=== PATIENT | male | born 1950 | race Caucasian/White ===

== ENCOUNTER 2021-07-28 23:06 | Inpatient (IN) | payer MEDICARE, SELFPAY ==
--- NOTE | ~2021-07-28 | XR_ITS ---
EXAMINATION: XR CHEST CLINICAL INFORMATION: Shortness of breath COMPARISON: None TECHNIQUE: Frontal view of the chest was obtained. FINDINGS: Cardiac leads overlie the chest. The lungs are well expanded. Diffuse patchy bilateral airspace opacities with mild interstitial prominence. No pleural effusion or pneumothorax. The cardiomediastinal silhouette is within normal limits. Defibrillator pads overlie the chest. XR/XR chest 1V IMPRESSION: Diffuse bilateral opacities with mild interstitial prominence as well. This appearance could be associated with interstitial and alveolar edema versus atypical infectious process.
[2021-07-28 23:17] VITALS: PULSE 120
[2021-07-28] MEDS: Furosemide 100 MG/10 ML VIAL 60 MG IVPUSH (23:18)
--- NOTE | 2021-07-28 23:18 | ECG_ITS ---
Test Reason : REPEAT Blood Pressure : / mmHG Vent. Rate : 096 BPM Atrial Rate : 096 BPM P-R Int : 220 ms QRS Dur : 144 ms QT Int : 408 ms P-R-T Axes : 065 -53 075 degrees QTc Int : 515 ms Poor data quality Sinus rhythm with 1st degree A-V block Left anterior fascicular block Right bundle branch block Inferior infarct (cited on or before 17-JUN-2007) Abnormal ECG When compared with ECG of 17-JUN-2007 11:49, OH interval has increased Right bundle branch block is now Present Referred By: Karen Stovall Electronically Signed By:ANA MARIA ROBLES MD
[2021-07-28 23:23] LABS: MANUAL DIFF FLAG NO
[2021-07-28 23:24] LABS: VBG Base Excess -2.2 mmol/L; VBG HCO3 26 mmol/L (22-26); VBG pCO2 63 mmHg; VBG pH 7.22 (7.32-7.43); VBG pO2 30 mmHg
--- NOTE | 2021-07-28 23:24 | ED_ITS ---
HPI - SOB/Dyspnea General Chief Complaint: Dyspnea Stated Complaint: Heart attack Time Seen by Provider: 07/28/21 23:13 Source: patient Mode of arrival: other History of Present Illness HPI Narrative: 71-year-old male who was brought in from the parking lot, employee here at the hospital, when he was noted to be sitting in his car with apparent gasping of breath and poor color. Initially, unable to get remaining history but later patient endorses that he does have a history of heart failure and was sick last week and has had progressive shortness of breath over the past week despite taking his medications as prescribed. He denies any chest pain, abdominal pain, but states he feels like his lungs are full of mucus. Related Data Home Medications Medication Instructions Recorded Confirmed amiodarone 200 mg tablet 1 tab PO DAILY 07/29/21 07/29/21 apixaban 5 mg tablet (Eliquis) 1 tab PO BID 07/29/21 07/29/21 atorvastatin 40 mg tablet 1 tab PO BEDTIME 07/29/21 07/29/21 carvedilol 25 mg tablet 1 tab PO BID 07/29/21 07/29/21 digoxin 125 mcg (0.125 mg) tablet 0.125 mcg PO DAILY 07/29/21 07/29/21 furosemide 20 mg tablet 1 tab PO BID 07/29/21 07/29/21 sacubitril 24 mg-valsartan 26 mg 1 tab PO BID 07/29/21 07/29/21 tablet (Entresto) sacubitril 49 mg-valsartan 51 mg 1 tab PO BID 07/29/21 07/29/21 tablet (Entresto) Allergies Allergy/AdvReac Type Severity Reaction Status Date / Time Unable to Assess Allergy Verified 07/28/21 23:14 Review of Systems Review of Systems: Pertinent positives and negatives as stated in HPI 10 point review of systems limited. [facility] Past Medical History Source: nursing notes reviewed Medical History (Updated 07/29/21 @ 00:58 by Karen Stovall PA-C) Congestive heart failure (CHF) Hypertension Social History Social History Household Members: None Housing: House Do you presently have visiting nurse or other home services: No Alcohol intake: never Patient Tobacco Use Status: Former Tobacco user Quit Date: 1990 Tobacco use type: Cigarette Cigarette Packs Per Day: 1.5 Cigarettes Per Day: 30.0 Years Smoked: 15 Smoked in Last 30 Days: No Patient Interested in Nicotine Replacement: No Patient Given Instructions on How to Stop Smoking: No Second Hand Smoke Exposure: No Use of substances other than those prescribed or required for medical reasons: No Substance Use Type: Marijuana and Caffiene Substance Use Type Other:: very occasional marijuana, Substance Use Frequency: Occasionally Have you been hit, kicked, punched, or otherwise hurt by someone within the past year? If so, by whom?: No Do you feel safe in your current relationship?: No Current Relationship Is there a partner from a previous relationship who is making you feel unsafe now?: No Are you made to feel afraid or neglected: No Spiritual Healthcare Practices: very spiritual person, believes in God, believes personal spiritual variation [employer] Healthcare Practices: n/a Cultural Healthcare Practices: feels reticent to take aggressive healthcare measures. Expresses not being interested in being dependent on a machine, i.e. was advised to get an implantable defibrillator by [facility] and did not want it. ok with defibrillation in general with paddles, but not with implantable device. Advance Directives: Yes (Christiano ndiaye, will bring in form) Advance Directives Information Provided: Yes Advance Directives on File: No (at another institution, but will bring in or sign new one) Advance Directives Date on File: 07/29/21 Do you have thoughts of harming others: None Do you have a plan to hurt others: No Plan Recently lost weight without trying: No Poor oral hygiene: No Physical Exam Vital Signs: Vital Signs: Last Vital Signs Temp 98.8 F 07/29/21 05:47 Pulse 66 07/29/21 05:47 Resp 16 07/29/21 05:47 BP 109/53 L 07/29/21 05:47 Pulse Ox 99 07/29/21 05:47 Body Mass Index 28.0 VITAL SIGNS: Reviewed. GENERAL: Well developed, well nourished, patient in extremis HEAD: Normocephalic/atraumatic EYES: PERRLA, EOMI OROPHARYNX: no oral lesions noted, posterior pharynx clear, dry mucosa NECK: Supple, no adenopathy LUNGS: Rales noted in apices with scattered rhonchi but no wheeze, gasping for breath, significant work of breathing, tachypnea. SpO2<88> on 100% non- rebreather CARDIOVASCULAR: Regular, tachycardic rate without noted murmurs, no JVD and bilateral lower 1+ pitting edema ABDOMEN: Soft, non-tender, non-distended with bowel sounds. SKIN: Inspection of the skin reveals no rashes, but significant pallor and extremities cool to touch, no cyanosis noted NEUROLOGIC: Alert and oriented x 4. Strength and sensation to light touch were grossly intact x 4. Course Course Course Narrative: 2335: 71-year-old male arrives in acute respiratory failure that responded to 100% non-rebreather and based on clinical exam as well as quick bedside ultrasound significant for pulmonary edema. EKG without ST elevations noted and patient denies chest pain. After being placed on oxygen heart rate began to improve and patient was placed on BiPAP with continued improvement in heart rate as well as oxygenation. Patient also received 60 mg of Lasix and 0.5 in of nitropaste. Noted lactic acidosis as well as leukocytosis and heart rate felt to be secondary to acute respiratory failure and less likely to be associated with infectious source. However, patient was provided with empiric antibiotics. Sepsis fluids were withheld for obvious acute respiratory failure with pulmonary edema. Patient continued to improve, was noted to have an elevated temperature was treated with Tylenol and on review of x-ray there is further corroboration for CHF with pulmonary edema. This case was discussed with the stitch wheeler who accepts admission and patient now with decreased work of breathing, improved color, remains hemodynamically stable and VBG improve from pH of 7.2-7.4. MDM - SOB/Dyspnea Lab Data Result diagrams: 07/29/21 04:10 07/29/21 04:10 Labs: Lab Results 07/28/21 07/28/21 07/28/21 Range/Units 23:12 23:12 23:12 WBC 12.9 H (4.8-10.8) X10*3/uL RBC 3.82 L (4.60-5.80) X10*6/uL Hgb 12.2 L (14.0-18.0) g/dl Hct 38.9 L (42.0-52.0) % MCV 101.8 H (80.0-98.0) fL MCH 31.9 (27.0-33.0) pg MCHC 31.4 (31.0-36.0) g/dl RDW 12.5 (11.0-16.0) % Plt Count 550 H (160-400) X10*3/uL MPV 9.9 (9.4-12.4) fL Immature Gran % (Auto) 0.4 (0.0-0.4) % Neut % (Auto) 69.1 (45-73) % Lymph % (Auto) 21.1 (20-40) % [place] % (Auto) 7.0 (2-11) % Eos % (Auto) 2.0 (0-4) % Baso % (Auto) 0.4 (0-2) % Lymph # (Auto) 2.7 (1.2-4.9) X10*3/uL [place] # (Auto) 0.9 (0.1-1.2) X10*3/uL Eos # (Auto) 0.3 (0.0-0.4) X10*3/uL Baso # (Auto) 0.1 (0.0-0.2) X10*3/uL Abs Immat Gran (auto) 0.05 H (0.00-0.03) X10*3/uL Absolute Neuts (auto) 8.9 H (2.0-8.3) x10*3/uL Absolute Nucleated RBC 0.000 (0.0-0.012) X10*3/uL Nucleated RBC % (auto) 0.0 (0.0-0.2) /100WBC PT 13.2 H (9.9-13.0) SEC INR 1.2 H (0.9-1.1) APTT 31.4 (24.1-38.0) SEC D-Dimer < 200 NG/ML VBG pH (7.32-7.43) VBG pCO2 mmHg VBG pO2 mmHg VBG HCO3 (22-26) mmol/L VBG O2 Saturation % VBG Base Excess mmol/L Sodium 141 (135-145) mmol/L Potassium 4.5 (3.3-5.1) mmol/L Chloride 106 (96-108) mmol/L Carbon Dioxide 24 (22-29) mmol/L Anion Gap 16 (12-20) BUN 12 (9-16) mg/dL Creatinine 1.22 (0.5-1.4) mg/dL Estim Creat Clear Calc 65.0 Estimated GFR 59 Random Glucose 244 H (60-115) mg/dL Lactic Acid (0.5-2.0) mmol/L Calcium 9.1 (8.4-10.2) mg/dL Magnesium 2.5 (1.6-2.6) mg/dL Total Bilirubin 0.4 (0.0-1.0) mg/dL AST 20 (5-37) U/L ALT 18 (0-40) U/L Alkaline Phosphatase 72 (39-117) U/L Troponin I High Sens (<3.5-35.0) ng/L B-Natriuretic Peptide (<100) pg/mL Total Protein 7.1 (6.5-8.0) g/dL Albumin 4.3 (3.5-5.0) g/dL COVID-19 (ELDER) (Negative) COVID-19 Clin Com 07/28/21 07/28/21 07/28/21 Range/Units 23:12 23:12 23:12 WBC (4.8-10.8) X10*3/uL RBC (4.60-5.80) X10*6/uL Hgb (14.0-18.0) g/dl Hct (42.0-52.0) % MCV (80.0-98.0) fL MCH (27.0-33.0) pg MCHC (31.0-36.0) g/dl RDW (11.0-16.0) % Plt Count (160-400) X10*3/uL MPV (9.4-12.4) fL Immature Gran % (Auto) (0.0-0.4) % Neut % (Auto) (45-73) % Lymph % (Auto) (20-40) % [place] % (Auto) (2-11) % Eos % (Auto) (0-4) % Baso % (Auto) (0-2) % Lymph # (Auto) (1.2-4.9) X10*3/uL [place] # (Auto) (0.1-1.2) X10*3/uL Eos # (Auto) (0.0-0.4) X10*3/uL Baso # (Auto) (0.0-0.2) X10*3/uL Abs Immat Gran (auto) (0.00-0.03) X10*3/uL Absolute Neuts (auto) (2.0-8.3) x10*3/uL Absolute Nucleated RBC (0.0-0.012) X10*3/uL Nucleated RBC % (auto) (0.0-0.2) /100WBC PT (9.9-13.0) SEC INR (0.9-1.1) APTT (24.1-38.0) SEC D-Dimer NG/ML VBG pH (7.32-7.43) VBG pCO2 mmHg VBG pO2 mmHg VBG HCO3 (22-26) mmol/L VBG O2 Saturation % VBG Base Excess mmol/L Sodium (135-145) mmol/L Potassium (3.3-5.1) mmol/L Chloride (96-108) mmol/L Carbon Dioxide (22-29) mmol/L Anion Gap (12-20) BUN (9-16) mg/dL Creatinine (0.5-1.4) mg/dL Estim Creat Clear Calc Estimated GFR Random Glucose (60-115) mg/dL Lactic Acid 3.6 H* (0.5-2.0) mmol/L Calcium (8.4-10.2) mg/dL Magnesium (1.6-2.6) mg/dL Total Bilirubin (0.0-1.0) mg/dL AST (5-37) U/L ALT (0-40) U/L Alkaline Phosphatase (39-117) U/L Troponin I High Sens 13.9 (<3.5-35.0) ng/L B-Natriuretic Peptide 1796 H (<100) pg/mL Total Protein (6.5-8.0) g/dL Albumin (3.5-5.0) g/dL COVID-19 (ELDER) Negative (Negative) COVID-19 Clin Com See Note 07/28/21 07/28/21 Range/Units 23:12 23:18 WBC (4.8-10.8) X10*3/uL RBC (4.60-5.80) X10*6/uL Hgb (14.0-18.0) g/dl Hct (42.0-52.0) % MCV (80.0-98.0) fL MCH (27.0-33.0) pg MCHC (31.0-36.0) g/dl RDW (11.0-16.0) % Plt Count (160-400) X10*3/uL MPV (9.4-12.4) fL Immature Gran % (Auto) (0.0-0.4) % Neut % (Auto) (45-73) % Lymph % (Auto) (20-40) % [place] % (Auto) (2-11) % Eos % (Auto) (0-4) % Baso % (Auto) (0-2) % Lymph # (Auto) (1.2-4.9) X10*3/uL [place] # (Auto) (0.1-1.2) X10*3/uL Eos # (Auto) (0.0-0.4) X10*3/uL Baso # (Auto) (0.0-0.2) X10*3/uL Abs Immat Gran (auto) (0.00-0.03) X10*3/uL Absolute Neuts (auto) (2.0-8.3) x10*3/uL Absolute Nucleated RBC (0.0-0.012) X10*3/uL Nucleated RBC % (auto) (0.0-0.2) /100WBC PT (9.9-13.0) SEC INR (0.9-1.1) APTT (24.1-38.0) SEC D-Dimer Cancelled NG/ML VBG pH 7.22 L (7.32-7.43) VBG pCO2 63 mmHg VBG pO2 30 mmHg VBG HCO3 26 (22-26) mmol/L VBG O2 Saturation 36.0 % VBG Base Excess -2.2 mmol/L Sodium (135-145) mmol/L Potassium (3.3-5.1) mmol/L Chloride (96-108) mmol/L Carbon Dioxide (22-29) mmol/L Anion Gap (12-20) BUN (9-16) mg/dL Creatinine (0.5-1.4) mg/dL Estim Creat Clear Calc Estimated GFR Random Glucose (60-115) mg/dL Lactic Acid (0.5-2.0) mmol/L Calcium (8.4-10.2) mg/dL Magnesium (1.6-2.6) mg/dL Total Bilirubin (0.0-1.0) mg/dL AST (5-37) U/L ALT (0-40) U/L Alkaline Phosphatase (39-117) U/L Troponin I High Sens (<3.5-35.0) ng/L B-Natriuretic Peptide (<100) pg/mL Total Protein (6.5-8.0) g/dL Albumin (3.5-5.0) g/dL COVID-19 (ELDER) (Negative) COVID-19 Clin Com Critical Care Time Critical Care Time Critical Care Time: Yes Total Critical Care Time: 30 Attestation: I personally attest to this time spent taking care of the patient. Discharge Plan Discharge Clinical Impression: Acute respiratory failure, Acute pulmonary edema with congestive heart failure Patient Disposition: Admitted As Inpatient Interventions: Admission Worksheet (ED) Last Done: 07/29/21 02:16 Discharge Date/Time: 07/29/21 02:17
--- NOTE | 2021-07-28 23:24 | PC.NURSE ---
THIS RN ACCOMPANIED SECURITY TO OLD ED PARKING LOT D/T MEDICAL EMERGENCY BEING CALLED OVER THE RADIO BY SWITCHBOARD. PT FOUND TO BE IN VEHICLE TANNING [employer]ON ATTENDANT SEAT OF OUTSIDE OF OLD ED ENTRANCE, PT WAS SLOW TO RESPOND BUT ABLE TO ANSWER QUESTIONS, PT PALE & DIAPHORETIC W/ OBVIOUS DIFF BREATHING. 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 PT PLACED ON ED STRETCHER BY SECURITY VIA THIS RN DIRECTION AND BROUGHT TO MAIN ED RM 5. DR. STEIN IN ROOM ON ARRIVAL TO ED, HOMA RT PRESENT, BRANDON RN PRESENT POC 197 HR 100 O2 SAT 84% ON RA R30 PT PLACED ON NRB O2 SAT TO 93% W/ RR 27-33 IV #18 R AC & #18 R WRIST 2310 EKG DONE 2311 BP 168/93 2314 PT PLACED ON BIPAP 2318 60MG LASIX IN 2319 SILVA CATH PLACED WITH CLEAR YELLOW URINE RETURN 2319 PT PLACED ON BIPAP 2320 REPEAT EKG DONE 232 156/80 HR 95 97% ON BIPAP RR 32
[2021-07-28 23:25] LABS: Venous Blood Gas Refer to POC result
[2021-07-28 23:26] VITALS: BP 159/79; PULSE 99; RESP 36; TEMP 38.5; O2SAT 100; BMI 28.0
[2021-07-28 23:28] LABS: Basophils Absolute Auto 0.1 X10*3/uL (0.0-0.2); Basophils Percent Auto 0.4 % (0-2); Eosinophils Absolute Auto 0.3 X10*3/uL (0.0-0.4); Hematocrit 38.9 % (42.0-52.0); Hemoglobin 12.2 g/dl (14.0-18.0); Imm Gran Abs Auto 0.05 X10*3/uL (0.00-0.03); Imm Gran Pct Auto 0.4 % (0.0-0.4); Lymphocytes Absolute Auto 2.7 X10*3/uL (1.2-4.9); Lymphocytes Percent Auto 21.1 % (20-40); Mean Corpuscular HGB Conc 31.4 g/dl (31.0-36.0); Mean Corpuscular Hemoglobin 31.9 pg (27.0-33.0); Mean Corpuscular Volume 101.8 fL (80.0-98.0); Mean Platelet Volume 9.9 fL (9.4-12.4); Monocytes Absolute Auto 0.9 X10*3/uL (0.1-1.2); Neutrophils Absolute Auto 8.9 x10*3/uL (2.0-8.3); Neutrophils Percent Auto 69.1 % (45-73); Platelet Count 550 X10*3/uL (160-400); Red Blood Count 3.82 X10*6/uL (4.60-5.80); Red Cell Distribution Width 12.5 % (11.0-16.0); White Blood Count 12.9 X10*3/uL (4.8-10.8)
[2021-07-28 23:35] LABS: INTERNATIONAL NORM RATIO 1.2 (0.9-1.1); Prothrombin Time 13.2 SEC (9.9-13.0)
[2021-07-28 23:38] LABS: Partial Thromboplastin Time 31.4 SEC (24.1-38.0)
[2021-07-28 23:41] LABS: D Dimer < 200 NG/ML
[2021-07-28 23:43] LABS: Alanine Aminotransferase 18 U/L (0-40); Albumin Level 4.3 g/dL (3.5-5.0); Alkaline Phosphatase 72 U/L (39-117); Anion Gap 16 (12-20); Aspartate Amino Transferase 20 U/L (5-37); Bilirubin Total 0.4 mg/dL (0.0-1.0); Blood Urea Nitrogen 12 mg/dL (9-16); Calcium 9.1 mg/dL (8.4-10.2); Carbon Dioxide 24 mmol/L (22-29); Chloride 106 mmol/L (96-108); Estimated Glomerular Filt Rate 59; Glucose Random 244 mg/dL (60-115); Magnesium 2.5 mg/dL (1.6-2.6); Potassium 4.5 mmol/L (3.3-5.1); Sodium 141 mmol/L (135-145); Total Protein 7.1 g/dL (6.5-8.0)
[2021-07-28 23:44] LABS: COVID-19 Test Negative (Negative); IDNOW Serial# 9DD0AD1C
[2021-07-28] MEDS: Acetaminophen Supp 650 MG SUPP.RECT PR (23:44)
[2021-07-28 23:46] VITALS: BP 162/84; PULSE 106
[2021-07-28] MEDS: Nitroglycerin 2 % Oint 1 GM Packet 0.5 INCH TRANSDERMA (23:46)
[2021-07-28 23:47] LABS: B Type Natriuretic Peptide 1796 pg/mL (<100); Troponin-I High Sensitivity 13.9 ng/L (<3.5-35.0)
[2021-07-28 23:48] LABS: Lactic Acid 3.6 mmol/L (0.5-2.0)
[2021-07-28 23:49] VITALS: O2SAT 98
[2021-07-29] VITALS (27 sets, daily range): BP systolic 94–137; BP diastolic 42–80; PULSE 24–97; RESP 13–26; TEMP 36.8–38.8; O2SAT 91–99; BMI 28.9
--- NOTE | 2021-07-29 | ECG_ITS ---
Test Reason : baseline Blood Pressure : / mmHG Vent. Rate : 070 BPM Atrial Rate : 070 BPM P-R Int : 172 ms QRS Dur : 144 ms QT Int : 456 ms P-R-T Axes : -13 -32 139 degrees QTc Int : 492 ms Normal sinus rhythm Left axis deviation Non-specific intra-ventricular conduction block Minimal voltage criteria for LVH, may be normal variant ( Brayden product ) ST depression in Lateral leads T wave abnormality, consider lateral ischemia Abnormal ECG ST more depressed Lateral leads Referred By: Karen Stovall Electronically Signed By:ANA MARIA ROBLES MD
[2021-07-29] MEDS: Piperacillin Sodium/Tazobactam 3.375 GM in 0.9 % Sodium Chloride 50 ML IV (00:20)
--- NOTE | 2021-07-29 00:24 | PM.CCHP ---
History of Present Illness Date of Service: 07/29/21 Attending physician on admission: Josiah Zimmerman Chief Complaint: Dyspnea Patient is a 71-year-old male with a past medical history of hypertension and congestive heart failure on 20 of Lasix daily who was found in the [facility] parking lot in respiratory distress. He states he had just arrived to work and security found him pale and and respiratory distress. The patient states he has had increasing shortness of breath, cough and fevers for the past week. He states no one else in his home is sick but he does live in a very old home with mold in the basement. He states he has had similar illnesse a few times in the past and it seems the mole and other irritants in his basement trigger these infections. He does not recall having to be diuresed, put on a Bipap machine or feeling like this in the past. He states he goes to [facility] ardiology for his care. In the ED, the patient was found to be hypertensive 162/84, tachycardic in the 120's, febrile at 102F, tachypneic with a RR of 24, hypoxic at 88% on RA. Labs revealed a mildly elevated white blood cell count 12.9, troponin was negative, chemistry panel was unremarkable, both renal and liver indices were within normal limits, d dimer <200, BNP 1796, lactic acid is 3.6 but we will not be giving IVF as pt is in flash pulmonary edema. UA negative for infection, COVID negative. EKG showed ST changes. Patient was placed on BiPAP, given 60 IV Lasix and zosyn. Will get procalcitonin, respiratory panel and repeat VBG as the pt has been on Bipap for 30-45 mins. During my bedside exam, he had already diuresed approximately 450 mLs and stated he was breathing a little easier than upon arrival but not back to his baseline yet. He denies any chest pain or abdominal pain. Dr. Zimmerman examined the patient, he agrees with assessment and plan, patient will be admitted to the ICU for further monitoring and treatment of his flash pulmonary edema. Records from [facility] show patient had an office visit with Dr Wang Low on 07/23/21, records from that day show the pt has a past medical history of DM2, afib on 5mg eliquis BID, PVD (R iliac disease), hyperlipidemia, hypertension, ischemic cardiomyopathy, obesity, HFrEF, NYHA subjective class 2, decompensated, stage C. I obtained the cardiology office note from [facility] cardiology dated 07/23/21 which states the patient has CAD (RCA DIRECTOR OF SALES, LCx DIRECTOR OF SALES, moderate LAD), severe BiV dysfunction with LVEF 10% with signs of RCA/LCX infarct on C-MRI, LVEF 10% with RH dysfunction an LVEDD 7.5 cm by echo at [facility] associated with AFib with RVR status post CV (recurrence after CV/dig/amiodarone infusion). On that day, patient was told to increase Lasix to 20 mg b.i.d. (which he did not do bc he was concerned about low blood pressures), continue Coreg at 25 mg b.i.d. and increase Entresto to 49/51mg BID. Of note, he takes 200 mg amiodarone daily, 5 mg apixaban BID, 81 mg aspirin daily, 40 mg atorvastatin daily, 0.125 mg digoxin every 48 hours. Called [facility], patient is part of the heart failure service. supervisor order takers said he could not make the decision to transfer the patient and their hospital is very full so the transfer line recommended calling in the morning and speaking with the heart failure service to see if they would like the patient tomorrow. Review of Systems Review of Systems: Yes all other systems are reviewed and are negative PENDING SALE TO [facility] Past Medical History Medical History Congestive heart failure (CHF) Hypertension Social History Social History Household Members: None Housing: House Do you presently have visiting nurse or other home services: No Alcohol intake: never Patient Tobacco Use Status: Former Tobacco user Quit Date: 1990 Tobacco use type: Cigarette Cigarette Packs Per Day: 1.5 Cigarettes Per Day: 30.0 Years Smoked: 15 Smoked in Last 30 Days: No Patient Interested in Nicotine Replacement: No Patient Given Instructions on How to Stop Smoking: No Second Hand Smoke Exposure: No Use of substances other than those prescribed or required for medical reasons: No Substance Use Type: Marijuana and Caffiene Substance Use Type Other:: very occasional marijuana, Substance Use Frequency: Occasionally Have you been hit, kicked, punched, or otherwise hurt by someone within the past year? If so, by whom?: No Do you feel safe in your current relationship?: No Current Relationship Is there a partner from a previous relationship who is making you feel unsafe now?: No Are you made to feel afraid or neglected: No Spiritual Healthcare Practices: very spiritual person, believes in God, believes personal spiritual variation Taoism Healthcare Practices: n/a Cultural Healthcare Practices: feels reticent to take aggressive healthcare measures. Expresses not being interested in being dependent on a machine, i.e. was advised to get an implantable defibrillator by [facility] and did not want it. ok with defibrillation in general with paddles, but not with implantable device. Advance Directives: Yes (Christiano senthil, will bring in form) Advance Directives Information Provided: Yes Advance Directives on File: No (at another institution, but will bring in or sign new one) Advance Directives Date on File: 07/29/21 Do you have thoughts of harming others: None Do you have a plan to hurt others: No Plan Recently lost weight without trying: No Poor oral hygiene: No Past Medical History Medical History: Congestive heart failure (CHF) Hypertension Social History Patient Tobacco Use Status: Former Tobacco user Tobacco use type: Cigarette Smoking cigarettes per day: 30.0 Smoked in Last 30 Days: No Quit Date: 1990 alcohol intake: never Use of substances other than those prescribed or required for medical reasons: No Substance Use Type: Marijuana and Caffiene Substance Use Type Other:: very occasional marijuana, Substance Use Frequency: Occasionally Meds Allergies Allergy/AdvReac Type Severity Reaction Status Date / Time Unable to Assess Allergy Verified 07/28/21 23:14 Active Medications: Current Medications Heparin Sodium (Porcine) (Heparin Sodium,Porcine 5,000 Unit/Ml Vial) 5,000 unit SUBCUT Q8H JANET Piperacillin Sod/Tazobactam (Sod 3.375 gm/ Sodium Chloride) 50 mls @ 100 mls/hr IV ONCE ONE Stop: 07/29/21 00:27 Last Admin: 07/29/21 00:20 Dose: 100 mls/hr Documented by: Pharmacy Consult (Consult Rx Perform Med Rec) 1 each MISCELLANE ONCE PRN PRN Reason: Consult order Home Medications Medication Instructions Recorded Confirmed Last Taken Type amiodarone 200 mg tablet 1 tab PO DAILY 07/29/21 07/29/21 07/28/21 History apixaban 5 mg tablet (Eliquis) 1 tab PO BID 07/29/21 07/29/21 07/28/21 History atorvastatin 40 mg tablet 1 tab PO BEDTIME 07/29/21 07/29/21 07/28/21 History carvedilol 25 mg tablet 1 tab PO BID 07/29/21 07/29/21 07/28/21 History digoxin 125 mcg (0.125 mg) tablet 0.125 mcg PO DAILY 07/29/21 07/29/21 07/28/21 History furosemide 20 mg tablet 1 tab PO BID 07/29/21 07/29/21 07/27/21 History sacubitril 24 mg-valsartan 26 mg 1 tab PO BID 07/29/21 07/29/21 07/28/21 History tablet (Entresto) sacubitril 49 mg-valsartan 51 mg 1 tab PO BID 07/29/21 07/29/21 07/28/21 History tablet (Entresto) Physical Exam Vital Signs: Vital Signs: Last Vital Signs Temp 102 F H 07/29/21 00:00 Pulse 97 07/29/21 00:00 Resp 24 H 07/29/21 00:10 BP 109/57 L 07/29/21 00:00 Pulse Ox 94 07/29/21 00:00 Body Mass Index 28.0 Const: Other: Bipap mask on General: cooperative, acute distress mild, moderate and respiratory, diaphoretic and other (pale) Nutritional Appearance: average body habitus Orientation/consciousness: patient oriented x3 HENMT: Head: Yes normal to inspection Eyes: General: appearance normal, both eyes and all related structures Neck: Neck: Yes normal visual inspection and Yes full ROM Resp: Effort & Inspection: Actively coughing, tripod positioning and uses accessory muscles Auscultation: rales bilateral and diffuse Cardio: Rate: tachycardic Rhythm: regular rhythm Heart sounds: normal S1 and S2 GI: Inspection: Yes normal to inspection Palpation (GI): Soft to palpation and nontender Skin: General skin exam: no rashes or lesions noted Neuro: General: patient oriented x3 Extrem: General: Yes pedal edema (bilateral LE 1+) Results Labs CBC and Chem 7: 07/29/21 04:10 07/29/21 04:10 Labs: Laboratory Results - last 24 hr 07/28/21 07/28/21 07/28/21 23:12 23:12 23:12 MCV 101.8 H MCH 31.9 MCHC 31.4 RDW 12.5 Plt Count 550 H MPV 9.9 Immature Gran % (Auto) 0.4 Neut % (Auto) 69.1 Lymph % (Auto) 21.1 [place] % (Auto) 7.0 Eos % (Auto) 2.0 Baso % (Auto) 0.4 Lymph # (Auto) 2.7 [place] # (Auto) 0.9 Eos # (Auto) 0.3 Baso # (Auto) 0.1 Abs Immat Gran (auto) 0.05 H Absolute Neuts (auto) 8.9 H Absolute Nucleated RBC 0.000 Nucleated RBC % (auto) 0.0 PT 13.2 H INR 1.2 H APTT 31.4 D-Dimer < 200 VBG pH VBG pCO2 VBG pO2 VBG HCO3 VBG O2 Saturation VBG Base Excess Anion Gap 16 Estim Creat Clear Calc 65.0 Estimated GFR 59 Random Glucose 244 H Lactic Acid Calcium 9.1 Magnesium 2.5 Total Bilirubin 0.4 AST 20 ALT 18 Alkaline Phosphatase 72 Troponin I High Sens B-Natriuretic Peptide Total Protein 7.1 Albumin 4.3 COVID-19 (ELDER) COVID-19 Clin Com 07/28/21 07/28/21 07/28/21 23:12 23:12 23:12 MCV MCH MCHC RDW Plt Count MPV Immature Gran % (Auto) Neut % (Auto) Lymph % (Auto) [place] % (Auto) Eos % (Auto) Baso % (Auto) Lymph # (Auto) [place] # (Auto) Eos # (Auto) Baso # (Auto) Abs Immat Gran (auto) Absolute Neuts (auto) Absolute Nucleated RBC Nucleated RBC % (auto) PT INR APTT D-Dimer VBG pH VBG pCO2 VBG pO2 VBG HCO3 VBG O2 Saturation VBG Base Excess Anion Gap Estim Creat Clear Calc Estimated GFR Random Glucose Lactic Acid 3.6 H* Calcium Magnesium Total Bilirubin AST ALT Alkaline Phosphatase Troponin I High Sens 13.9 B-Natriuretic Peptide 1796 H Total Protein Albumin COVID-19 (ELDER) Negative COVID-19 Clin Com See Note 07/28/21 07/28/21 23:12 23:18 MCV MCH MCHC RDW Plt Count MPV Immature Gran % (Auto) Neut % (Auto) Lymph % (Auto) [place] % (Auto) Eos % (Auto) Baso % (Auto) Lymph # (Auto) [place] # (Auto) Eos # (Auto) Baso # (Auto) Abs Immat Gran (auto) Absolute Neuts (auto) Absolute Nucleated RBC Nucleated RBC % (auto) PT INR APTT D-Dimer Cancelled VBG pH 7.22 L VBG pCO2 63 VBG pO2 30 VBG HCO3 26 VBG O2 Saturation 36.0 VBG Base Excess -2.2 Anion Gap Estim Creat Clear Calc Estimated GFR Random Glucose Lactic Acid Calcium Magnesium Total Bilirubin AST ALT Alkaline Phosphatase Troponin I High Sens B-Natriuretic Peptide Total Protein Albumin COVID-19 (ELDER) COVID-19 Clin Com Imaging Radiologist's Impressions: Impressions Chest X-Ray 07/28/21 23:30 IMPRESSION: Diffuse bilateral opacities with mild interstitial prominence as well. This appearance could be associated with interstitial and alveolar edema versus atypical infectious process. Assessment and Plan (1) Acute pulmonary edema with congestive heart failure: Status: Acute Continue with diuresis, BiPAP, monitor labs and vital signs. Upon arrival to the ICU, patient is off the BiPAP machine, breathing easily, setting at 96% on room air, heart rate is in the 70s, blood pressure 112/63. Very well-appearing. Asking for Ambien 10mg as he takes it nightly to sleep. Patient is asking to be discharged on Friday morning once the day rag washer arrives. Notified Dr Zimmerman.
[2021-07-29 00:31] LABS: Venous Blood Gas Refer to POC result
[2021-07-29 00:33] LABS: VBG Base Excess -1.1 mmol/L; VBG HCO3 22 mmol/L (22-26); VBG pCO2 35 mmHg; VBG pH 7.42 (7.32-7.43); VBG pO2 55 mmHg
[2021-07-29] MEDS: Heparin Sodium,Porcine 5,000 UNIT/ML VIAL 5000 UNIT SUBCUT (01:08)
[2021-07-29 01:09] LABS: Influenza A PCR NEGATIVE (Negative); Influenza B PCR NEGATIVE (Negative); Resp Syncy Virus RNA Qual PCR NEGATIVE (Negative); SARS COV2 PCR INHOUSE NEGATIVE (Negative)
--- NOTE | 2021-07-29 01:11 | PC.NURSE ---
Patient trialed off bipap with oxygen saturation of91 percent.
[2021-07-29 01:20] LABS: Reflex Lactate? Lactic Acid Added
--- NOTE | 2021-07-29 01:33 | PC.NURSE ---
This procedure writer was contacted by Nain from ICU for report on patient. I was informed that he would have to wait to take report because patient might be transferred to [facility] because the patient has an EF of 10 from the records at [facility]. Patient is admitted to ICU
--- NOTE | 2021-07-29 01:35 | PC.NURSE ---
Patient weened off of Bipap and is now having and oxygen saturation of 96 % and having a conversation with respiratory therapist. Patient is speaking in full sentences.
[2021-07-29 02:07] LABS: ~Lactic Acid-LAB USE ONLY 2.7 mmol/L (0.5-2.0)
[2021-07-29 02:35] LABS: Procalcitonin 0.03 ng/mL
[2021-07-29] MEDS: Zolpidem Tartrate 5 MG TABLET PO ×2 (03:19→21:56)
[2021-07-29 03:34] LABS: Glucose, Whole Blood 179 mg/dL (60-115)
[2021-07-29 03:49] LABS: Reflex Lactate? 2 Y
[2021-07-29 04:23] LABS: VBG Base Excess 1.3 mmol/L; VBG HCO3 25 mmol/L (22-26); VBG pCO2 40 mmHg; VBG pH 7.41 (7.32-7.43); VBG pO2 25 mmHg
[2021-07-29 04:26] LABS: MANUAL DIFF FLAG NO
[2021-07-29 04:33] LABS: Basophils Percent Auto 0.2 % (0-2); Eosinophils Percent Auto 0.3 % (0-4); Hematocrit 32.8 % (42.0-52.0); Hemoglobin 10.8 g/dl (14.0-18.0); Imm Gran Abs Auto 0.04 X10*3/uL (0.00-0.03); Imm Gran Pct Auto 0.4 % (0.0-0.4); Lymphocytes Percent Auto 9.9 % (20-40); Mean Corpuscular HGB Conc 32.9 g/dl (31.0-36.0); Mean Corpuscular Hemoglobin 33.1 pg (27.0-33.0); Mean Corpuscular Volume 100.6 fL (80.0-98.0); Mean Platelet Volume 9.6 fL (9.4-12.4); Monocytes Absolute Auto 0.6 X10*3/uL (0.1-1.2); Monocytes Percent Auto 5.4 % (2-11); Neutrophils Absolute Auto 8.6 x10*3/uL (2.0-8.3); Neutrophils Percent Auto 83.8 % (45-73); Platelet Count 437 X10*3/uL (160-400); Red Blood Count 3.26 X10*6/uL (4.60-5.80); Red Cell Distribution Width 12.5 % (11.0-16.0); White Blood Count 10.3 X10*3/uL (4.8-10.8)
--- NOTE | 2021-07-29 04:36 | PC.NURSE ---
Addendum entered by Christiano Whitfield RN 07/29/21 07:30: diuresed 1350 ccs Original Note: Assumed care from [facility] at 2:30. Patient is alert and oriented, responds appropriately, moves all extremities. Generally lives alone and is independent with family living locally. Admitted from ED tonight for question of possible rescue bipap requirement. Patient arrived on 2 lpm nasal cannula, appears to have some increased work of breathing with exertion. Patient lung sounds clear throughout. Was acidotic in ED, with pH of 7.22, this morning's VBG with pH of 7.412. Was febrile in ED 102.2, but this shift has come down to 99.5, core temp. 1+ pitting edema to bilateral ankles. No complaints, no pain, no dizziness, no chest pain or pressure. On monitor, sinus rhythm with first degree AVblock. Patient states that he would likely not be interested in a transfer to [facility] even if the heart failure service that was contacted would take him as a transfer. He repeatedly voiced a lack of interest in pursuing aggressive therapies that would leave him dependent on a machine, yet also denies being a DNI. He also says he has a healthcare proxy of his youngest son, Christiano. He plans to ask his son to bring in the paperwork, but would not be opposed to filling out a new HCP form here in the morning. Plan to notify case management. [place]gett emptied for 1,200 ccs after two hours in unit. Skin is intact.
[2021-07-29 04:39] LABS: ~Lactic Acid-LAB USE ONLY 1.8 mmol/L (0.5-2.0)
[2021-07-29 04:46] LABS: Alanine Aminotransferase 22 U/L (0-40); Albumin Level 3.8 g/dL (3.5-5.0); Alkaline Phosphatase 65 U/L (39-117); Anion Gap 16 (12-20); Aspartate Amino Transferase 25 U/L (5-37); Bilirubin Total 0.6 mg/dL (0.0-1.0); Blood Urea Nitrogen 14 mg/dL (9-16); Calcium 8.5 mg/dL (8.4-10.2); Carbon Dioxide 24 mmol/L (22-29); Chloride 105 mmol/L (96-108); Creatinine Clr Calc Pharmacy 67.2; Estimated Glomerular Filt Rate > 60; Glucose Random 181 mg/dL (60-115); Magnesium 2.2 mg/dL (1.6-2.6); Phosphorus 2.9 mg/dL (2.7-4.5); Potassium 4.1 mmol/L (3.3-5.1); Sodium 141 mmol/L (135-145); Total Protein 6.4 g/dL (6.5-8.0)
[2021-07-29 04:47] LABS: B Type Natriuretic Peptide 1488 pg/mL (<100)
[2021-07-29 04:52] LABS: Venous Blood Gas Refer to POC result
--- NOTE | 2021-07-29 08:59 | PHA.MEDREC ---
Pharmacy Consult ? Medication Reconciliation Pharmacy has completed the medication reconciliation. Patient takes digoxin QOD (last dose 07/28) and entresto 49-51. Thanks Julien Camarillo
[2021-07-29] MEDS: Sacubitril/Valsartan 49/51 1 TAB TABLET PO ×2 (09:21→20:16)
[2021-07-29] MEDS: bisacodyL 5 MG TABLET.DR 10 MG PO (09:21)
[2021-07-29] MEDS: Amiodarone HCL 200 MG TABLET PO (09:22)
[2021-07-29] MEDS: Milk of Magnesia 30 ML ORAL.SUSP PO (09:22)
[2021-07-29] MEDS: carvediloL 25 MG TABLET PO ×2 (09:22→20:15)
[2021-07-29] MEDS: Apixaban 5 MG TABLET PO ×2 (09:23→20:16)
[2021-07-29] MEDS: Furosemide 20 MG TABLET PO ×2 (09:23→20:17)
[2021-07-29] MEDS: Azithromycin 500 MG TABLET PO (16:42)
--- NOTE | 2021-07-29 19:53 | PM.CCPN ---
Subjective Subjective Date of Service: 07/29/21 Interval History: Mr. Gao was admitted to ICU last night with acute pulmonary edema 2? CHF, prob 2? hypertensive crisis. 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 Records from [facility] heart failure service report a PMHx of CAD (RCA ADMISSIONS RECRUITER, LCx ADMISSIONS RECRUITER, moderate LAD), severe BiV dysfunction with LVEF 10%, with RH dysfunction and LVEDD 7.5 cm by echo at [facility], with signs of RCA/LCX infarct on C-MRI. ?He has NYHA subjective class 2, decompensated, stage C heart failure. ?He also has AFib with h/o RVR status post CV (recurrence after CV/dig/amiodarone infusion), DM2, PVD (R iliac disease), hyperlipidemia, hypertension, The patient had an office visit with Dr Wang Low on 07/23/21. ?On that day, the patient was told to double his Lasix to 20 mg bid (which he did not do bec he was concerned about low blood pressures), continue Coreg at 25 mg bid, and double his Entresto to 49/51mg bid.? He also takes 200 mg amiodarone daily, 5 mg apixaban bid, 81 mg aspirin daily, 40 mg atorvastatin daily, and 0.125 mg digoxin q48 hrs. The patient tells me that over the last two weeks, he?s felt unwell with vague cold sx and fatigue.? 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 He woke up at about 5pm feeling a little under the weather, but still felt well enough to go to work.? He drove to the [facility] parking lot, but when he got there he just didn?t have the strength to get out of his car.? He was found in his car by security pale and in respiratory distress.? He was brought into the ED.? The patient tells me he has never had an episode like this in the past, never had to be put on NIV. In the ED, the patient was found to be hypertensive 162/84, tachycardic in the 120's, febrile at 102F, tachypneic with a RR of 24, hypoxic at 88% on RA.? Labs revealed a WBC 12.9, troponin was negative, chemistry panel was unremarkable, BUN/creat were 12/1.2 (his baseline according to [facility] records), d dimer <200, BNP 1796, lactic acid was 3.6, but down to normal 4 hrs later, screening u/a negative for infection, COVID negative.? EKG showed no acute ischemic changes.? CXR showed gross pulmon edema, right > left. The patient was placed on BiPAP, given 60 IV Lasix, NTP, and zosyn.? No IVF.? The patient?s BP came down, he diuresed readily, and fairly quickly felt better.? He was off BiPAP on room air within less than two hours.? He was admitted to ICU and since this morning has been asking to go home. On my exam this morning, the patient looked completely well and robust.? Fully alert and appropriate, breathing easy on room air, Sat 98%.? HR 70 SR on the monitor, BP 115/58.? Afebrile since his temp of 102 in the ED at midnite.? No JVD at 30-40?.? Chest CTA, w normal exp phase.? Regular rate and rhythm, with normal-sounding S1 and S2, possible S4, and soft systolic murmur heard best at the left sternal border.? Abd benign.? No edema. LABORATORY DATA:? Below.? Notably, white count is down to 10,? BUN/creatinine of 14/1.1, lactic acid 1.8, BNP is down to 1488. PCT is negative.? Venous blood gas this morning showed 7.41/40/+1. IMPRESSION: 1. Underlying severe biventricular heart failure. 2. H/o Afib, presumably PAfib, bec he?s now in SR. 3. Acute hypercapnic and hypercarbic resp failure last night.? Presumably 2? hypertensive crisis.? Now resolved.? The patient?s BP is at a good level now. 4. DM.? Glucose level within a reasonable range on no treatment. We?re continuing his heart failure meds now.? I?ve discussed his situation with the patient at length and finally convinced him to stay one more day.? Once he?s discharged, he should follow up with his PMD later this week. Stable for transfer to regular room, but there are no beds so he?ll stay in the ICU overnight and be discharged home tomorrow. Time:? 70 min.? ([id number]) Critical Care Time (minutes): 0 Physical Exam Vital Signs: Vital Signs: Last Vital Signs Temp 100.0 F 07/29/21 17:53 Pulse 83 07/29/21 19:00 Resp 17 07/29/21 19:00 BP 137/72 07/29/21 19:00 Pulse Ox 97 07/29/21 19:00 Body Mass Index 28.9 Objective Data Labs CBC & Chem 7: 07/29/21 04:10 07/29/21 04:10 Labs: Laboratory Results - last 24 hr 07/28/21 07/28/21 07/28/21 23:12 23:12 23:12 WBC 12.9 H RBC 3.82 L Hgb 12.2 L Hct 38.9 L MCV 101.8 H MCH 31.9 MCHC 31.4 RDW 12.5 Plt Count 550 H MPV 9.9 Immature Gran % (Auto) 0.4 Neut % (Auto) 69.1 Lymph % (Auto) 21.1 Newberry % (Auto) 7.0 Eos % (Auto) 2.0 Baso % (Auto) 0.4 Lymph # (Auto) 2.7 Newberry # (Auto) 0.9 Eos # (Auto) 0.3 Baso # (Auto) 0.1 Abs Immat Gran (auto) 0.05 H Absolute Neuts (auto) 8.9 H Absolute Nucleated RBC 0.000 Nucleated RBC % (auto) 0.0 PT 13.2 H INR 1.2 H APTT 31.4 D-Dimer < 200 VBG pH VBG pCO2 VBG pO2 VBG HCO3 VBG O2 Saturation VBG Base Excess Sodium 141 Potassium 4.5 Chloride 106 Carbon Dioxide 24 Anion Gap 16 BUN 12 Creatinine 1.22 Estim Creat Clear Calc 65.0 Estimated GFR 59 POC Glucose Random Glucose 244 H Lactic Acid Lactic Acid Fup @ 2Hr Lactic Acid Fup @ 4Hr Calcium 9.1 Phosphorus Magnesium 2.5 Total Bilirubin 0.4 AST 20 ALT 18 Alkaline Phosphatase 72 Troponin I High Sens B-Natriuretic Peptide Total Protein 7.1 Albumin 4.3 Procalcitonin COVID-19 (ELDER) COVID-19 Clin Com Influenza Type A (PCR) Influenza Type B (PCR) RSV RNA Qual (PCR) SARS-CoV-2 RNA (RT-PCR) 07/28/21 07/28/21 07/28/21 23:12 23:12 23:12 WBC RBC Hgb Hct MCV MCH MCHC RDW Plt Count MPV Immature Gran % (Auto) Neut % (Auto) Lymph % (Auto) Newberry % (Auto) Eos % (Auto) Baso % (Auto) Lymph # (Auto) Newberry # (Auto) Eos # (Auto) Baso # (Auto) Abs Immat Gran (auto) Absolute Neuts (auto) Absolute Nucleated RBC Nucleated RBC % (auto) PT INR APTT D-Dimer VBG pH VBG pCO2 VBG pO2 VBG HCO3 VBG O2 Saturation VBG Base Excess Sodium Potassium Chloride Carbon Dioxide Anion Gap BUN Creatinine Estim Creat Clear Calc Estimated GFR POC Glucose Random Glucose Lactic Acid 3.6 H* Lactic Acid Fup @ 2Hr Lactic Acid Fup @ 4Hr Calcium Phosphorus Magnesium Total Bilirubin AST ALT Alkaline Phosphatase Troponin I High Sens 13.9 B-Natriuretic Peptide 1796 H Total Protein Albumin Procalcitonin COVID-19 (ELDER) Negative COVID-19 Clin Com See Note Influenza Type A (PCR) Influenza Type B (PCR) RSV RNA Qual (PCR) SARS-CoV-2 RNA (RT-PCR) 07/28/21 07/28/21 07/29/21 23:12 23:18 00:23 WBC RBC Hgb Hct MCV MCH MCHC RDW Plt Count MPV Immature Gran % (Auto) Neut % (Auto) Lymph % (Auto) Newberry % (Auto) Eos % (Auto) Baso % (Auto) Lymph # (Auto) Newberry # (Auto) Eos # (Auto) Baso # (Auto) Abs Immat Gran (auto) Absolute Neuts (auto) Absolute Nucleated RBC Nucleated RBC % (auto) PT INR APTT D-Dimer Cancelled VBG pH 7.22 L VBG pCO2 63 VBG pO2 30 VBG HCO3 26 VBG O2 Saturation 36.0 VBG Base Excess -2.2 Sodium Potassium Chloride Carbon Dioxide Anion Gap BUN Creatinine Estim Creat Clear Calc Estimated GFR POC Glucose Random Glucose Lactic Acid Lactic Acid Fup @ 2Hr Lactic Acid Fup @ 4Hr Calcium Phosphorus Magnesium Total Bilirubin AST ALT Alkaline Phosphatase Troponin I High Sens B-Natriuretic Peptide Total Protein Albumin Procalcitonin COVID-19 (ELDER) COVID-19 Clin Com Influenza Type A (PCR) NEGATIVE Influenza Type B (PCR) NEGATIVE RSV RNA Qual (PCR) NEGATIVE SARS-CoV-2 RNA (RT-PCR) NEGATIVE 07/29/21 07/29/21 07/29/21 00:26 01:33 03:28 WBC RBC Hgb Hct MCV MCH MCHC RDW Plt Count MPV Immature Gran % (Auto) Neut % (Auto) Lymph % (Auto) Newberry % (Auto) Eos % (Auto) Baso % (Auto) Lymph # (Auto) Newberry # (Auto) Eos # (Auto) Baso # (Auto) Abs Immat Gran (auto) Absolute Neuts (auto) Absolute Nucleated RBC Nucleated RBC % (auto) PT INR APTT D-Dimer VBG pH 7.42 VBG pCO2 35 VBG pO2 55 VBG HCO3 22 VBG O2 Saturation 84.0 VBG Base Excess -1.1 Sodium Potassium Chloride Carbon Dioxide Anion Gap BUN Creatinine Estim Creat Clear Calc Estimated GFR POC Glucose 179 H Random Glucose Lactic Acid Lactic Acid Fup @ 2Hr 2.7 H* Lactic Acid Fup @ 4Hr Calcium Phosphorus Magnesium Total Bilirubin AST ALT Alkaline Phosphatase Troponin I High Sens B-Natriuretic Peptide Total Protein Albumin Procalcitonin COVID-19 (ELDER) COVID-19 Clin Com Influenza Type A (PCR) Influenza Type B (PCR) RSV RNA Qual (PCR) SARS-CoV-2 RNA (RT-PCR) 07/29/21 07/29/21 07/29/21 04:10 04:10 04:10 WBC 10.3 RBC 3.26 L Hgb 10.8 L Hct 32.8 L MCV 100.6 H MCH 33.1 H MCHC 32.9 RDW 12.5 Plt Count 437 H MPV 9.6 Immature Gran % (Auto) 0.4 Neut % (Auto) 83.8 H Lymph % (Auto) 9.9 L Newberry % (Auto) 5.4 Eos % (Auto) 0.3 Baso % (Auto) 0.2 Lymph # (Auto) 1.0 L Newberry # (Auto) 0.6 Eos # (Auto) 0.0 Baso # (Auto) 0.0 Abs Immat Gran (auto) 0.04 H Absolute Neuts (auto) 8.6 H Absolute Nucleated RBC 0.000 Nucleated RBC % (auto) 0.0 PT INR APTT D-Dimer VBG pH VBG pCO2 VBG pO2 VBG HCO3 VBG O2 Saturation VBG Base Excess Sodium 141 Potassium 4.1 Chloride 105 Carbon Dioxide 24 Anion Gap 16 BUN 14 Creatinine 1.18 Estim Creat Clear Calc 67.2 Estimated GFR > 60 POC Glucose Random Glucose 181 H Lactic Acid Lactic Acid Fup @ 2Hr Lactic Acid Fup @ 4Hr Calcium 8.5 D Phosphorus 2.9 Magnesium 2.2 Total Bilirubin 0.6 AST 25 ALT 22 Alkaline Phosphatase 65 Troponin I High Sens B-Natriuretic Peptide 1488 H Total Protein 6.4 L Albumin 3.8 Procalcitonin COVID-19 (ELDER) COVID-19 Clin Com Influenza Type A (PCR) Influenza Type B (PCR) RSV RNA Qual (PCR) SARS-CoV-2 RNA (RT-PCR) 07/29/21 07/29/21 07/29/21 04:10 04:17 23:12 WBC RBC Hgb Hct MCV MCH MCHC RDW Plt Count MPV Immature Gran % (Auto) Neut % (Auto) Lymph % (Auto) Newberry % (Auto) Eos % (Auto) Baso % (Auto) Lymph # (Auto) Newberry # (Auto) Eos # (Auto) Baso # (Auto) Abs Immat Gran (auto) Absolute Neuts (auto) Absolute Nucleated RBC Nucleated RBC % (auto) PT INR APTT D-Dimer VBG pH 7.41 VBG pCO2 40 VBG pO2 25 VBG HCO3 25 VBG O2 Saturation 35.0 VBG Base Excess 1.3 Sodium Potassium Chloride Carbon Dioxide Anion Gap BUN Creatinine Estim Creat Clear Calc Estimated GFR POC Glucose Random Glucose Lactic Acid Lactic Acid Fup @ 2Hr Lactic Acid Fup @ 4Hr 1.8 Calcium Phosphorus Magnesium Total Bilirubin AST ALT Alkaline Phosphatase Troponin I High Sens B-Natriuretic Peptide Total Protein Albumin Procalcitonin 0.03 COVID-19 (ELDER) COVID-19 Clin Com Influenza Type A (PCR) Influenza Type B (PCR) RSV RNA Qual (PCR) SARS-CoV-2 RNA (RT-PCR) Quality Stroke Does the patient have a stroke diagnosis?: No VTE Prior VTE?: No VTE Risk Level:: Medical - low VTE Device Contraindication: N/A - Device Ordered VTE Drug Contraindication: N/A - Med Ordered
[2021-07-29] MEDS: Atorvastatin Calcium 40 MG TABLET PO (20:16)
[2021-07-30] VITALS (14 sets, daily range): BP systolic 115–147; BP diastolic 56–76; PULSE 68–93; RESP 14–20; TEMP 36.8–37.1; O2SAT 95–97; BMI 27.7
[2021-07-30] MEDS: Melatonin 3 MG TABLET 6 MG PO (01:50)
--- NOTE | 2021-07-30 05:33 | PC.NURSE ---
No resp distress overnight. O2 sats 94-97% on room air. Lungs are clear. Mild shortness of breath noted when pt exerts himself. Monitor shows sinus rhythym, rate 70's-80's, BBB noted and 1st degree AV block noted. OOB to bedside commode. Several BM's noted, soft brown. Voiding in urinol. Urine is light pink in color but no difficulty voiding. Pt received ambien for sleep but only slept in short naps. PA ordered melatonin 6 mg po after ambien had little effect on sleep and still pt slept in short naps. Plan is for discharge today.
[2021-07-30 05:44] LABS: Hematocrit 32.6 % (42.0-52.0); Hemoglobin 10.3 g/dl (14.0-18.0); Mean Corpuscular HGB Conc 31.6 g/dl (31.0-36.0); Mean Corpuscular Hemoglobin 31.5 pg (27.0-33.0); Mean Corpuscular Volume 99.7 fL (80.0-98.0); Mean Platelet Volume 9.8 fL (9.4-12.4); Platelet Count 425 X10*3/uL (160-400); Red Blood Count 3.27 X10*6/uL (4.60-5.80); Red Cell Distribution Width 12.3 % (11.0-16.0); White Blood Count 9.6 X10*3/uL (4.8-10.8)
[2021-07-30 06:05] LABS: Anion Gap 17 (12-20); Blood Urea Nitrogen 10 mg/dL (9-16); Calcium 8.6 mg/dL (8.4-10.2); Carbon Dioxide 25 mmol/L (22-29); Chloride 103 mmol/L (96-108); Creatinine Clr Calc Pharmacy 92.5; Estimated Glomerular Filt Rate > 60; Glucose Random 138 mg/dL (60-115); Potassium 3.9 mmol/L (3.3-5.1); Sodium 141 mmol/L (135-145)
[2021-07-30 06:08] LABS: B Type Natriuretic Peptide 785 pg/mL (<100); Troponin-I High Sensitivity 19.6 ng/L (<3.5-35.0)
[2021-07-30] MEDS: carvediloL 25 MG TABLET PO ×2 (07:10→20:58)
[2021-07-30] MEDS: Furosemide 20 MG TABLET PO ×2 (07:10→20:58)
[2021-07-30] MEDS: Sacubitril/Valsartan 49/51 1 TAB TABLET PO ×2 (07:10→20:58)
[2021-07-30] MEDS: Amiodarone HCL 200 MG TABLET PO (07:10)
[2021-07-30] MEDS: LORazepam 2 MG/ML VIAL 0.5 MG IVPUSH ×3 (07:36→20:59)
--- NOTE | 2021-07-30 10:10 | MHC.CM.PN ---
Met with pt to discuss d/c planning: pt resides alone, works here at [employer] [facility] [employer] and does not have any services. He states he has [employer] [facility] [employer] insurance and recently signed up for MCR. His HCP is his sister - copy requested. Pt does not have a PCP but does see a [facility] landcare facilitator Dr. Pereira very regulalry. Encouraged pt to obtain a PCP - offered to assist - pt states his dtr in law is presently working on this. LELAND amin in 2020. No services anticipated. Pt will call his family for transportation.
[2021-07-30 10:18] LABS: Glucose, Whole Blood 197 mg/dL (60-115)
--- NOTE | 2021-07-30 11:18 | P.PNCC_ITS ---
Subjective Subjective Date of Service: 07/30/21 Interval History: 71-year-old gentleman with underlying CAD, severe biventricular dysfunction with ejection fraction of approximately 10% (followed by Dr. Low), AFib, diabetes mellitus admitted on 07/29/2021 with shortness of breath secondary to acute on chronic congestive heart failure. Patient briefly required BiPAP support and this was admitted to intensive care unit. He has been started on diuresis with significant improvement in his dyspnea. No events overnight. Critical Care Time (minutes): 0 Physical Exam Vital Signs: Vital Signs: Last Vital Signs Temp 98.7 F 07/30/21 04:00 Pulse 75 07/30/21 08:00 Resp 19 07/30/21 08:00 BP 115/62 07/30/21 08:00 Pulse Ox 95 07/30/21 08:00 Body Mass Index 27.7 Const: General: no acute distress, alert and awake Eyes: Sclerae: sclerae normal EOM: EOMs intact bilaterally Neck: Neck: Yes no lymphadenopathy, Yes trachea midline and Yes supple Resp: Effort & Inspection: normal respiratory effort and no respiratory distress Auscultation: clear to auscultation bilaterally Cardio: Rate: regular rate Rhythm: regular rhythm Heart sounds: no gallops, no murmurs and no rubs GI: Palpation (GI): Soft to palpation and Other GI palpation findings present ( Nontender) Auscultation: normal bowel sounds Extrem: General: No clubbing, No cyanosis and Yes pedal edema (Trace bilateral) Objective Data Labs CBC & Chem 7: 07/30/21 05:03 07/30/21 05:03 Labs: Laboratory Results - last 24 hr 07/28/21 07/30/21 07/30/21 23:06 05:03 05:03 WBC 9.6 RBC 3.27 L Hgb 10.3 L Hct 32.6 L MCV 99.7 H MCH 31.5 MCHC 31.6 RDW 12.3 Plt Count 425 H MPV 9.8 Absolute Nucleated RBC 0.000 Nucleated RBC % (auto) 0.0 Sodium 141 Potassium 3.9 Chloride 103 Carbon Dioxide 25 Anion Gap 17 BUN 10 Creatinine 0.87 Estim Creat Clear Calc 92.5 Estimated GFR > 60 POC Glucose 197 H Random Glucose 138 H Calcium 8.6 Troponin I High Sens B-Natriuretic Peptide 07/30/21 05:03 WBC RBC Hgb Hct MCV MCH MCHC RDW Plt Count MPV Absolute Nucleated RBC Nucleated RBC % (auto) Sodium Potassium Chloride Carbon Dioxide Anion Gap BUN Creatinine Estim Creat Clear Calc Estimated GFR POC Glucose Random Glucose Calcium Troponin I High Sens 19.6 B-Natriuretic Peptide 785 H Microbiology Microbiology Results: Microbiology 07/29/21 00:23 Blood - Venous Blood Culture - Preliminary No growth after 24 hours. 07/29/21 00:23 Blood - Venous Blood Culture - Preliminary No growth after 24 hours. Progress Note: A&P Assessment and plan (1) Acute on chronic systolic (congestive) heart failure: Status: Acute (2) Afib: Status: Acute (3) Diabetes: Status: Acute (4) Acute pulmonary edema with congestive heart failure: Status: Acute (5) Acute respiratory failure: Status: Acute Assessment and Plan: Assessment: 71-year-old gentleman admitted with acute hypoxic respiratory failure secondary to exacerbation of underlying acute on chronic systolic vivien estive heart failure briefly requiring BiPAP support Plan: Neuro: No acute issues. Cardiac: Acute on chronic systolic congestive heart failure on the background of known poor biventricular function, AFib, CAD. Improved with diuresis. Cardiology evaluation is pending. Pulmonary: Acute hypoxic respiratory failure secondary to exacerbation of underlying congestive heart failure, improved with diuresis. Titrated off BiPAP. Renal: No acute issues. Endo: No acute issues. Underlying diabetes mellitus. GI: No acute issues. ID: No acute issues Heme/Onc: No acute issues. Psych: No acute issues. Miscellaneous: No acute issues. Prophylaxis: Eliquis Diet: Cardiac Quality Stroke Does the patient have a stroke diagnosis?: No VTE Prior VTE?: No VTE Risk Level:: Medical - low VTE Device Contraindication: N/A - Device Ordered VTE Drug Contraindication: N/A - Med Ordered
--- NOTE | 2021-07-30 15:14 | PM.CNCAR ---
History of Present Illness History of Present Illness Date of Service: 07/30/21 Requesting physician: Vincent Renee Chief complaint: Flash pulmonary edema Narrative: 71-year-old gentleman who has background history of cardiomyopathy with severely reduced ejection fraction and known coronary artery disease. He has followed at [facility] with Dr. Low in the past. He has recently saw him and his Entresto dose was increased and he was also to increase the Lasix to 20 mg twice a day. Patient said that he was feeling some shortness of breath at that time but progressively after that his breathing worsened. He also has been complaining of some congestion and upper respiratory tract infection like symptoms. it is possible that he has used some decongestants because previously he has use Benadryl-D. He presented to us with elevated blood pressures and shortness of breath. He denied any chest discomfort. Clinically was in heart failure. He was admitted and diuresed. Clinically he is improving at this point. He is saying he was taking medications as PMFSH Past Medical History Medical History Congestive heart failure (CHF) Hypertension Social History Social History Household Members: None Housing: House Do you presently have visiting nurse or other home services: No Alcohol intake: never Patient Tobacco Use Status: Former Tobacco user Quit Date: 1990 Tobacco use type: Cigarette Cigarette Packs Per Day: 1.5 Cigarettes Per Day: 30.0 Years Smoked: 15 Smoked in Last 30 Days: No Patient Interested in Nicotine Replacement: No Patient Given Instructions on How to Stop Smoking: No Second Hand Smoke Exposure: No Use of substances other than those prescribed or required for medical reasons: No Substance Use Type: Marijuana and Caffiene Substance Use Type Other:: very occasional marijuana, Substance Use Frequency: Occasionally Currently Displaying Signs/Symptoms of Drug Intoxication Withdrawal: No Have you been hit, kicked, punched, or otherwise hurt by someone within the past year? If so, by whom?: No Do you feel safe in your current relationship?: No Current Relationship Is there a partner from a previous relationship who is making you feel unsafe now?: No Are you made to feel afraid or neglected: No Spiritual Healthcare Practices: very spiritual person, believes in God, believes personal spiritual variation Yarsanism Healthcare Practices: n/a Cultural Healthcare Practices: feels reticent to take aggressive healthcare measures. Expresses not being interested in being dependent on a machine, i.e. was advised to get an implantable defibrillator by [facility] and did not want it. ok with defibrillation in general with paddles, but not with implantable device. Advance Directives: Yes (Christiano ndiaye, will bring in form) Advance Directives Information Provided: Yes Advance Directives on File: No (at another institution, but will bring in or sign new one) Advance Directives Date on File: 07/29/21 Do you have thoughts of harming others: None Do you have a plan to hurt others: No Plan Recently lost weight without trying: No Poor oral hygiene: No service: No Current occupational status: employed Meds Allergies Allergy/AdvReac Type Severity Reaction Status Date / Time Unable to Assess Allergy Verified 07/28/21 23:14 Active Medications: Current Medications Amiodarone HCl (Amiodarone Hcl 200 Mg Tablet) 200 mg PO DAILY [facility] Last Admin: 07/30/21 07:10 Dose: 200 mg Documented by: Apixaban (Apixaban 5 Mg Tablet) 5 mg PO BID JANET Last Admin: 07/29/21 20:16 Dose: 5 mg Documented by: Atorvastatin Calcium (Atorvastatin Calcium 40 Mg Tablet) 40 mg PO BEDTIME JANET Last Admin: 07/29/21 20:16 Dose: 40 mg Documented by: Carvedilol (Carvedilol 25 Mg Tablet) 25 mg PO BID JANET; Protocol Last Admin: 07/30/21 07:10 Dose: 25 mg Documented by: Digoxin (Digoxin 0.125 Mg Tablet) 0.125 mg PO Q48H JANET Stop: 08/03/21 21:01 Furosemide (Furosemide 20 Mg Tablet) 20 mg PO BID JANET; Protocol Last Admin: 07/30/21 07:10 Dose: 20 mg Documented by: Lorazepam (Lorazepam 2 Mg/Ml Vial) 0.5 mg IVPUSH Q6H PRN PRN Reason: anxiety Last Admin: 07/30/21 15:02 Dose: 0.5 mg Documented by: Pharmacy Consult (Consult Rx Perform Med Rec) 1 each MISCELLANE ONCE PRN PRN Reason: Consult order Sacubitril/Valsartan (Sacubitril/Valsartan 49/51 1 Tab Tablet) 1 tab PO BID JANET; Protocol Last Admin: 07/30/21 07:10 Dose: 1 tab Documented by: Zolpidem Tartrate (Zolpidem Tartrate 5 Mg Tablet) 5 mg PO BEDTIME PRN PRN Reason: Insomnia Last Admin: 07/29/21 21:56 Dose: 5 mg Documented by: Home Medications Medication Instructions Recorded Confirmed Last Taken Type amiodarone 200 mg tablet 1 tab PO DAILY 07/29/21 07/29/21 07/28/21 History apixaban 5 mg tablet (Eliquis) 1 tab PO BID 07/29/21 07/29/21 07/28/21 History atorvastatin 40 mg tablet 1 tab PO BEDTIME 07/29/21 07/29/21 07/28/21 History carvedilol 25 mg tablet 1 tab PO BID 07/29/21 07/29/21 07/28/21 History digoxin 125 mcg (0.125 mg) tablet 0.125 mcg PO Q2D 07/29/21 07/29/21 07/28/21 History furosemide 20 mg tablet 1 tab PO BID 07/29/21 07/29/21 07/28/21 History sacubitril 49 mg-valsartan 51 mg 1 tab PO BID 07/29/21 07/29/21 07/28/21 History tablet (Entresto) Physical Exam Vital Signs: Vital Signs: Last Vital Signs Temp 98.3 F 07/30/21 12:00 Pulse 73 07/30/21 12:00 Resp 18 07/30/21 12:00 BP 121/56 L 07/30/21 12:00 Pulse Ox 96 07/30/21 12:00 Body Mass Index 27.7 GENERAL APPEARANCE: in no acute distress, pleasant. NECK: no carotid bruit, mild jugular venous distention. SKIN: no suspicious lesions, warm and dry. HEART: no murmurs, regular rate and rhythm. LUNGS: clear to auscultation bilaterally. ABDOMEN: soft, nontender. EXTREMITIES: no edema. PERIPHERAL PULSES: equal. NEUROLOGIC: No gross deficits, AAO X 3 Objective Labs and Meds Result diagrams: 07/30/21 05:03 07/30/21 05:03 Lab results: Laboratory Results - last 24 hr 07/28/21 07/30/21 07/30/21 23:06 05:03 05:03 WBC 9.6 RBC 3.27 L Hgb 10.3 L Hct 32.6 L MCV 99.7 H MCH 31.5 MCHC 31.6 RDW 12.3 Plt Count 425 H MPV 9.8 Absolute Nucleated RBC 0.000 Nucleated RBC % (auto) 0.0 Sodium 141 Potassium 3.9 Chloride 103 Carbon Dioxide 25 Anion Gap 17 BUN 10 Creatinine 0.87 Estim Creat Clear Calc 92.5 Estimated GFR > 60 POC Glucose 197 H Random Glucose 138 H Calcium 8.6 Troponin I High Sens B-Natriuretic Peptide 07/30/21 05:03 WBC RBC Hgb Hct MCV MCH MCHC RDW Plt Count MPV Absolute Nucleated RBC Nucleated RBC % (auto) Sodium Potassium Chloride Carbon Dioxide Anion Gap BUN Creatinine Estim Creat Clear Calc Estimated GFR POC Glucose Random Glucose Calcium Troponin I High Sens 19.6 B-Natriuretic Peptide 785 H Assessment and Plan (1) Acute on chronic systolic (congestive) heart failure: Status: Acute (2) Afib: Status: Acute (3) Hypertension: Status: Acute pleasant 71-year-old gentleman who is here for shortness of breath and clinical heart failure. He has been on amiodarone for atrial fibrillation along with Eliquis. His blood pressure was elevated when he got admitted. Blood pressure control is good right now. Overall he looks mildly overloaded at this point. I think we should give him another dose of IV Lasix. Otherwise he can continue the same medications as before. Would favor discharging him on Lasix 40 mg in AM and 20 mg in the afternoon. f/u with Dr Low at [facility]. Procedures Date of Service Date of Service: 07/30/21
[2021-07-30] MEDS: Furosemide 20 MG/2 ML VIAL IVPUSH (17:19)
[2021-07-30] MEDS: Atorvastatin Calcium 40 MG TABLET PO (20:58)
[2021-07-30] MEDS: Apixaban 5 MG TABLET PO (20:58)
[2021-07-30] MEDS: Digoxin 0.125 MG TABLET PO (20:59)
[2021-07-30] MEDS: Zolpidem Tartrate 5 MG TABLET PO (21:50)
[2021-07-31] VITALS: BP 134/63; PULSE 73; RESP 18; TEMP 36.2; O2SAT 96
[2021-07-31 03:24] VITALS: BP 121/68; PULSE 73; RESP 18; TEMP 36.2; O2SAT 95
[2021-07-31 06:00] VITALS: BMI 27.7
[2021-07-31 06:09] LABS: Hemoglobin 11.1 g/dl (14.0-18.0); Mean Corpuscular HGB Conc 32.6 g/dl (31.0-36.0); Mean Corpuscular Hemoglobin 31.4 pg (27.0-33.0); Mean Corpuscular Volume 96.3 fL (80.0-98.0); Mean Platelet Volume 9.6 fL (9.4-12.4); Platelet Count 456 X10*3/uL (160-400); Red Blood Count 3.53 X10*6/uL (4.60-5.80); Red Cell Distribution Width 12.2 % (11.0-16.0); White Blood Count 8.6 X10*3/uL (4.8-10.8)
[2021-07-31 06:41] LABS: Anion Gap 14 (12-20); Blood Urea Nitrogen 14 mg/dL (9-16); Calcium 8.9 mg/dL (8.4-10.2); Carbon Dioxide 29 mmol/L (22-29); Chloride 99 mmol/L (96-108); Creatinine Clr Calc Pharmacy 85.1; Estimated Glomerular Filt Rate > 60; Glucose Fasting 161 mg/dL (60-99); Potassium 3.6 mmol/L (3.3-5.1); Sodium 138 mmol/L (135-145)
[2021-07-31 07:38] VITALS: BP 119/57; PULSE 82; RESP 18; TEMP 36.6; O2SAT 96
[2021-07-31 09:04] VITALS: BP 152/76; PULSE 77
[2021-07-31] MEDS: Furosemide 20 MG TABLET PO (09:04)
[2021-07-31] MEDS: Apixaban 5 MG TABLET PO (09:04)
[2021-07-31] MEDS: carvediloL 25 MG TABLET PO (09:04)
[2021-07-31 09:05] VITALS: BP 157/76; PULSE 77
[2021-07-31] MEDS: Amiodarone HCL 200 MG TABLET PO (09:05)
--- NOTE | 2021-07-31 09:27 | PM.DS ---
DS: Providers Provider Date of Service: 07/31/21 Date of admission: 07/29/21 00:17 Primary care physician: Unknown Physician Consults: 07/30/21 08:37 Consult to Cardiology Routine Consulting Provider: [facility] [place] Cardiovascular Services Reason for consultation: Acute on chronic heart failure Has provider been notified: No DS: Diagnosis Discharge Diagnosis (1) Acute on chronic systolic (congestive) heart failure: Status: Acute (2) Acute respiratory failure with hypoxia and hypercapnia: Status: Acute (3) Afib: Status: Acute (4) Hypertension: Status: Acute DS: Summary Hospital Course Hospital Course: From the admission H&P: 'Patient is a 71-year-old male with a past medical history of hypertension and congestive heart failure on 20 of Lasix daily who was found in the [facility] parking lot in respiratory distress.? He states he had just arrived to work and security found him pale and and respiratory distress.? The patient states he has had increasing shortness of breath, cough? and fevers for the past week.? He states no one else in his home is sick but he does live in a very old home with mold in the basement.? He states he has had similar illnesse a few times in the past and it seems the mole and other irritants in his basement trigger these infections.? He does not recall having to be diuresed, put on a Bipap machine or feeling like this in the past.? He states he goes to [facility] ardiology for his care. In the ED, the patient was found to be hypertensive 162/84, tachycardic in the 120's, febrile at 102F, tachypneic with a RR of 24, hypoxic at 88% on RA. Labs revealed a mildly elevated white blood cell count 12.9, troponin was negative, chemistry panel was unremarkable, both renal and liver indices were within normal limits, d dimer <200, BNP 1796, lactic acid is 3.6 but we will not be giving IVF as pt is in flash pulmonary edema.? UA negative for infection, COVID negative.? EKG showed ST changes. Patient was placed on BiPAP, given 60 IV Lasix and zosyn. Will get procalcitonin, respiratory panel and repeat VBG as the pt has been on Bipap for 30-45 mins.? During my bedside exam, he had already diuresed approximately 450 mLs and stated he was breathing a little easier than upon arrival but not back to his baseline yet.? He denies any chest pain or abdominal pain. Dr. Zimmerman examined the patient, he agrees with assessment and plan, patient will be admitted to the ICU for further monitoring and treatment of his flash pulmonary edema.? Records from [facility] show patient had an office visit with Dr Wang Low on 07/23/21, records from that day show the pt has a past medical history of DM2, afib on 5mg eliquis BID, PVD (R iliac disease), hyperlipidemia, hypertension, ischemic cardiomyopathy, obesity, HFrEF, NYHA subjective class 2, decompensated, stage C. I obtained the cardiology office note? from [facility] cardiology dated 07/23/21? which states the patient has CAD (RCA SPORTS PHYSICAL THERAPIST, LCx SPORTS PHYSICAL THERAPIST, moderate LAD),? severe BiV dysfunction? with LVEF 10% with signs of RCA/LCX infarct on C-MRI, LVEF 10% with RH dysfunction an LVEDD 7.5 cm by echo at [facility] associated with AFib with RVR status post CV (recurrence after CV/dig/amiodarone infusion).? On that day, patient was told? to increase Lasix to 20 mg b.i.d. (which he did not do bc he was concerned about low blood pressures), continue Coreg at 25 mg b.i.d. and increase Entresto to 49/51mg BID.? Of note, he takes 200 mg amiodarone daily, 5 mg apixaban BID, 81 mg aspirin daily, 40 mg atorvastatin daily, 0.125 mg digoxin every 48 hours. Called [facility] Cardiology, patient is part of the heart failure service.? spear fisher said he could not make the decision to transfer the patient and their hospital is very full so the transfer line recommended calling in the morning and speaking with the heart failure service to see if they would like the patient tomorrow. Hospital Course: Patient was started on IV Lasix and required BiPAP support. He was admitted initially to the intensive care where he was diuresed and had immediate and significant improvement in his respiratory status. He was weaned to room air rather quickly. He was monitored in the intensive care overnight and was transferred to telemetry the next morning. Once on the floor, he was evaluated by Cardiology and his IV Lasix was continued for an additional 24 hours. He will be transitioned to oral Lasix 20 mg twice daily at the time of discharge. His other cardiac medications remain unchanged. He has been instructed to follow up with his primary residential child care counselor in the next week or 2. He has been provided CHF Education. Time Spent with Patient Time attestation: Total time spent providing and/or coordinating discharge services: Discharge coordination time: Greater than 30 minutes Quality: Stroke Does the patient have a stroke diagnosis?: No Physical Exam Vital Signs: Vital Signs: Last Vital Signs Temp 97.9 F 07/31/21 07:38 Pulse 77 07/31/21 09:05 Resp 18 07/31/21 07:38 BP 157/76 H 07/31/21 09:05 Pulse Ox 96 07/31/21 07:38 Body Mass Index 27.7 Const: Other: General - no acute distress, appears comfortable Cardiovascular - RRR, no JVD, no bilateral LE edema Lungs - normal respiratory effort, clear to auscultation bilaterally, no wheezing Abdomen - soft, nontender, no rebound or guarding Extremities - no edema bilaterally Neuro - awake and alert, no focal deficits DS: Data Data Completed and Pending Labs on day of discharge: Laboratory Results - last 24 hr 07/28/21 07/31/21 07/31/21 23:06 05:47 05:47 WBC 8.6 RBC 3.53 L Hgb 11.1 L Hct 34.0 L MCV 96.3 MCH 31.4 MCHC 32.6 RDW 12.2 Plt Count 456 H MPV 9.6 Absolute Nucleated RBC 0.000 Nucleated RBC % (auto) 0.0 Sodium 138 Potassium 3.6 Chloride 99 Carbon Dioxide 29 Anion Gap 14 BUN 14 Creatinine 0.86 Estim Creat Clear Calc 85.1 Estimated GFR > 60 POC Glucose 197 H Fasting Glucose 161 H Calcium 8.9 Preliminary micro results at discharge 07/29/21 00:23 Blood Culture - Preliminary Blood - Venous No growth after 48 hours. 07/29/21 00:23 Blood Culture - Preliminary Blood - Venous No growth after 48 hours. Discharge Plan Discharge Patient Disposition: Home, Self-Care Discharge Diagnosis: Acute Respiratory Failure, Acute Decompensated CHF Referrals: Physician,Unknown J [Primary Care Provider] - 1 Week Discharge Medications: New furosemide 20 mg Tablet 20 mg PO BID Qty: 60 RF: 0 lorazepam 0.5 mg tablet 0.5 mg PO DAILY PRN (Reason: anxiety) Qty: 10 RF: 0 Continued atorvastatin 40 mg tablet 1 tab PO BEDTIME RF: 0 carvedilol 25 mg tablet 1 tab PO BID RF: 0 amiodarone 200 mg tablet 1 tab PO DAILY RF: 0 digoxin 125 mcg (0.125 mg) tablet 0.125 mcg PO Q2D RF: 0 Eliquis 5 mg tablet 1 tab PO BID RF: 0 Entresto 49-51 mg tablet 1 tab PO BID RF: 0 Discontinued furosemide 20 mg tablet 1 tab PO BID RF: 0 Discharge Orders: Discharge Order (Routine); Ordered 07/31/21 Ordered By: John Peña Diet: advance to usual diet Activity on Discharge: As tolerated Stand Alone Forms: Patient Portal Discharge page Care Plan Goals: To stay healthy and out of the hospital. Health Concerns: CHF Plan of Treatment: Take your cardiac medications as prescribed Assessment: 71 yo M with CHF admitted to ICU for BIPAP support. Will be d/c on increased dose of lasix.
--- NOTE | 2021-07-31 11:14 | MHC.CM.PN ---
PT DISCHARGED HOME SELF CARE W/OUTPT FOLLOW-UP W/PT'S FOOD PRODUCTION MANAGER AT THE [facility], PT HAS ARRANGED TRANSPORT HOME.
== END 2021-07-31 10:58 | disposition home or self-care (01) | DRG 291 ==
LOC: HO.ED 07-29 00:31 → HO.ICU 07-29 00:41 → HO.S3 07-30 22:58
PROVIDERS: Internal Medicine; Physician Assistant; Admitting Provider Anesthesiology; Emergency Provider Student in an Organized Health Care Education/Training Program; PCP Internal Medicine; Visit Provider Family Medicine
DX: I11.0 Hypertensive heart disease with heart failure (principal); I50.23 Acute on chronic systolic (congestive) heart failure; J96.01 Acute respiratory failure with hypoxia; J96.02 Acute respiratory failure with hypercapnia; I25.10 Atherosclerotic heart disease of native coronary artery without angina pectoris; I48.91 Unspecified atrial fibrillation; Z20.822 Contact with and (suspected) exposure to COVID-19; Z87.891 Personal history of nicotine dependence; Z79.01 Long term (current) use of anticoagulants; Z79.899 Other long term (current) drug therapy
CPT/HCPCS: 0241U; 36415; 71045; 80048; 80053; 82803; 82947; 83605; 83735; 83880; 84100; 84145; 84484; 85025; 85027; 85379; 85610; 85730; 87040; 87635; 93005; 94660; 96365; 99285; C1758; J1940; J2060; J2543